=== PATIENT | male | born 1990 | race Caucasian/White ===

== ENCOUNTER 2019-11-25 22:57 | Emergency (ER) | payer OTHER, SELFPAY ==
[~2019-11-25 22:57] MED LIST: Iopamidol-370 76% 500 ML 1 ML ONE
[2019-11-25 23:15] LABS: Bilirubin Negative (Negative); Blood, Urine Negative (Negative); Clarity Clear (Clear); Glucose, Urine (Dipstick) Normal (Negative); Leukocyte Negative Leu/uL (Negative); Nitrite Negative (Negative); Protein, Urine (Dipstick) Negative (Neg-Trace); Urobilinogen Normal mg/dL (Less than 2)
[2019-11-25 23:35] LABS: #Basophils 0.1 thou/uL (0.0-0.2); #Eosinphils 0.2 thou/uL (0.0-0.7); #Lymphocytes 1.3 thou/uL (1.20-3.40); #Monocytes 0.8 thou/uL (0.11-0.59); #Neutrophils 10.6 thou/uL (1.40-6.50); %Basophils 0.5 % (0.0-1.0); %Eosinophils 1.7 % (0.0-10.0); %Lymphocytes 9.9 % (21.0-51.0); %Neutrophils 81.9 % (42.0-75.0); Hemoglobin 17.1 g/dL (14.0-18.0); Mean Corpuscular HGB CONC 33.7 g/dL (32.0-36.0); Mean Corpuscular Hemoglobin 30.8 pg (27.0-31.0); Mean Corpuscular Volume 91.5 fL (78.0-98.0); Mean Platelet Volume 7.6 fL (7.4-10.4); Platelet Count 220 thou/uL (130-400); RBC Distribution Width 11.3 % (11.5-14.5); Red Blood Cell (RBC) Count 5.53 mill/uL (4.70-6.10); White Blood Cell (WBC) Count 12.9 thou/uL (4.8-10.8)
--- NOTE | 2019-11-25 23:53 | CT ---
CT OF THE ABDOMEN AND PELVIS WITH IV CONTRAST INDICATION: Right-sided abdominal pain and testicular pain COMPARISON: None FINDINGS: ABDOMEN: Lung bases: Clear Liver: There is a 1.7 cm hypodensity within segment 8 of the right hepatic lobe on image 16 of series 2 that cannot be further characterize. Gallbladder: Normal appearing. Pancreas: Normal. Adrenal glands: Normal. Spleen: The spleen is enlarged measuring 15 cm. Kidneys and ureters: Normal. No hydronephrosis. Vasculature: Normal. Lymph nodes:No lymphadenopathy. Free fluid in abdomen:No free fluid is evident. PELVIS: Small and large bowel: Normal Appendix:Normal Bladder: Normal. Rectal and perirectal soft tissues:Normal. Reproductive structures: Normal. Free fluid in pelvis: No free fluid is evident. Lymphadenopathy pelvis: No lymphadenopathy is evident. Osseous structures: No acute osseous abnormality. No destructive osteolytic or osteoblastic lesion i s identified. Soft tissues:Normal. IMPRESSION: 1. No renal or ureteral calculus. There is a normal appendix in the right lower quadrant of the abdom en. 2. Nonspecific mild splenomegaly. 3. Right hepatic lobe hypodensity, incompletely characterized. Nonemergent follow-up MR the abdomen w ith and without contrast utilizing a hemangioma protocol is recommended for additional characterization.
[2019-11-25 23:56] LABS: ALT (SGPT) 37 U/L (8-55); AST (SGOT) 28 U/L (5-34); Albumin 4.9 g/dL (3.5-5.0); Alkaline Phosphatase 82 U/L (40-110); Anion Gap 12 mmol/L (10-20); BUN (Urea Nitrogen) 21 mg/dL (8.9-20.6); Bilirubin, Total 0.6 mg/dL (0.2-1.2); Calc. Creatinine Clearance 0 mL/min (70-130); Calcium 9.1 mg/dL (7.8-10.44); Carbon Dioxide 27 mmol/L (22-29); Chloride 102 mmol/L (98-107); Estimated GFR-MDRD 77; Globulin 2.5 g/dL (2.4-3.5); Glucose 109 mg/dL (70-105); Protein, Total 7.4 g/dL (6.0-8.3); Sodium 137 mmol/L (136-145)
--- NOTE | 2019-11-26 00:05 | ULT ---
SCROTAL ULTRASOUND INDICATION: Right-sided testicular pain TECHNIQUE: Grayscale, color Doppler spectral Doppler images were obtained of the scrotum. COMPARISON: None. FINDINGS: Right Testicle: Size: 4.4 x 2.3 x 2.9 cm. Flow: There is normal vascular flow to the right testicle Hydrocele: Tiny right hydrocele Epididymis: The right epididymis appears within normal limits. Left Testicle: Size: 4.4 x 2.5 x 2.9 cm. Flow: There is normal vascular flow to left testicle. Hydrocele: Tiny left hydrocele Epididymis: The left epididymis appears within normal limits. Additional findings: None. Impression: 1. No evidence of testicular torsion or intratesticular mass.
[2019-11-26] MEDS ORDERED: Morphine 4 MG/ML VIAL ONE (00:08)
[2019-11-26] MEDS ORDERED: Ondansetron PF 4 MG/2 ML Vial ONE (00:08)
== END 2019-11-26 01:55 | disposition home or self-care (01) ==
LOC: ERS 22:57
DX: N50.811 Right testicular pain (principal); R10.9 Unspecified abdominal pain; R10.813 Right lower quadrant abdominal tenderness; F41.9 Anxiety disorder, unspecified; F32.9 Major depressive disorder, single episode, unspecified
CPT/HCPCS: 74177; 76870; 80053; 81003; 85025; 93976; 96374; 96375; J2270; J2405; Q9967

== ENCOUNTER 2019-12-19 08:56 | Outpatient (CLI) | payer OTHER ==
--- NOTE | 2019-12-19 10:44 | MRI ---
EXAM: MRI of the abdomen without and with contrast COMPARISON: CT abdomen/pelvis 11/25/2019 HISTORY: Liver lesion seen on prior CT TECHNIQUE: Multiplanar multi sequence MR images were taken of the abdomen without and with IV contras t. [An MRCP was performed.] FINDINGS: Liver: There is a well-circumscribed 1.5 cm area of high T2 signal in the right lobe the liver. On po stcontrast images this demonstrates peripheral enhancement with gradual filling consistent with a hemangioma. No other liver lesions are seen. Gallbladder: No filling defects or gallbladder wall thickening. Common bile duct: Normal caliber without filling defects Adrenal glands: Unremarkable. Kidneys: No hydronephrosis or focal renal lesions. No abnormal areas of enhancement. Spleen: Unremarkable. Pancreas: Unremarkable. No abnormal enhancement. Retroperitoneum: No enlarged lymph nodes Bones: No marrow signal abnormality. IMPRESSION: Right hepatic hemangioma
[2019-12-19] MEDS ORDERED: Magnevist 469MG/ML 20 ML VIAL ONE (11:11)
== END 2019-12-19 08:57 | disposition home or self-care (01) ==
LOC: BICMRI 08:56
PROVIDERS: ATTEND Family Medicine
DX: K76.9 Liver disease, unspecified (principal); R16.1 Splenomegaly, not elsewhere classified; D18.09 Hemangioma of other sites
CPT/HCPCS: 74183